=== PATIENT | female | born 1950 ===

== ENCOUNTER 2022-05-18 08:00 | Outpatient (CLI) | payer MEDICARE, OTHER ==
--- NOTE | 2022-05-18 17:07 | XRAY Report ---
PROCEDURE: Shoulder 3 View LT INDICATIONS: LEFT ARM MUSCLE STRAIN TECHNIQUE: 3 views of the shoulder were acquired. COMPARISON: None. FINDINGS: Bones: No fractures or dislocations. No suspicious bony lesions. Visualized ribs appear intact. Soft tissues: Calcification noted adjacent to the lateral margin of the humeral head compatible with calcific tendinitis. IMPRESSION: Left rotator cuff calcific tendinitis. Reviewed by: Bouchra Li MD, PhD on 05/18/2022 5:05 PM PDT Approved by: Bouchra Li MD, PhD on 05/18/2022 5:05 PM PDT Station ID: [id number]
== END 2022-05-18 23:59 | disposition home or self-care (01) ==
LOC: DI.S 08:00
PROVIDERS: ATTEND Emergency Medicine
DX: M75.32 Calcific tendinitis of left shoulder (principal)